=== PATIENT | female | born 1980 | race Caucasian/White ===

== ENCOUNTER 2017-07-14 15:28 | Emergency (ER) | payer OTHER ==
[2017-07-14] MEDS ORDERED: Lidocaine 1% 20 ML MDV ONE (15:41)
== END 2017-07-14 15:48 | disposition home or self-care (01) ==
LOC: SCSER 15:28
DX: S61.011A Laceration without foreign body of right thumb without damage to nail, initial encounter (principal); W26.9XXA Contact with unspecified sharp object(s), initial encounter
CPT/HCPCS: 99282; J2001

== ENCOUNTER 2017-10-08 08:58 | Outpatient (CLI) | payer OTHER | END 2017-10-08 08:59 | disposition home or self-care (01) | LOC: BICMAMMO 08:58 | PROVIDERS: ATTEND Obstetrics & Gynecology | DX: N63.23 Unspecified lump in the left breast, lower outer quadrant (principal) | CPT/HCPCS: 77066; G0279 ==

== ENCOUNTER 2019-03-22 07:41 | Day surgery (SDC) | payer OTHER ==
[2019-03-21 08:07] VITALS: BMI 33.6
[2019-03-22] MEDS ORDERED: Fentanyl 100 MCG/2 ML VIAL ONE ×2 (07:45→09:16)
[2019-03-22] MEDS ORDERED: Midazolam HCl 2 mg/2 ml Vial ONE (07:45)
[2019-03-22 08:50] LABS: #Basophils 0.1 thou/uL (0.0-0.2); #Eosinphils 0.3 thou/uL (0.0-0.7); #Lymphocytes 2.9 thou/uL (1.20-3.40); #Monocytes 0.9 thou/uL (0.11-0.59); #Neutrophils 7.7 thou/uL (1.40-6.50); %Eosinophils 2.8 % (0.0-10.0); %Lymphocytes 24.5 % (21.0-51.0); %Monocytes 7.2 % (0.0-10.0); %Neutrophils 64.5 % (42.0-75.0); Hemoglobin 14.1 g/dL (12.0-16.0); Mean Corpuscular HGB CONC 33.9 g/dL (32.0-36.0); Mean Corpuscular Hemoglobin 29.8 pg (27.0-31.0); Mean Corpuscular Volume 88.1 fL (78.0-98.0); Mean Platelet Volume 7.6 fL (7.4-10.4); Platelet Count 363 thou/uL (130-400); Red Blood Cell (RBC) Count 4.73 mill/uL (4.20-5.40)
[2019-03-22] MEDS ORDERED: Bupivacaine PF 0.5% 30 ML VIAL ONE (09:11)
[2019-03-22 09:32] LABS: Bilirubin Negative (Negative); Blood, Urine Negative (Negative); Glucose, Urine (Dipstick) Negative (Negative); Leukocyte Negative (Negative); Nitrite Negative (Negative); Protein, Urine (Dipstick) Negative (Neg-Trace); Urobilinogen 0.2 mg/dL (Less than 2)
[2019-03-22 09:40] LABS: Clarity Clear (Clear)
[2019-03-22 09:43] LABS: RBC/HPF 0-3 HPF (0-3)
[2019-03-22 09:44] LABS: Bacteria/HPF 2+ HPF (None Seen); Squamous Epithelial 0-3 HPF (0-3); WBC/HPF 0-3 HPF (0-3)
[2019-03-22] MEDS ORDERED: PROPOFOL 200 MG/20 ML VIAL ONE (11:10)
[2019-03-22] MEDS ORDERED: Dexamethasone 20 MG/5 ML VIAL ONE (11:10)
[2019-03-22] MEDS ORDERED: Lidocaine 1% PF 5 ML VIAL ONE (11:10)
[2019-03-22] MEDS ORDERED: Ketorolac Tromethamine 30 MG/ML VIAL ONE (11:10)
[2019-03-22] MEDS ORDERED: Ondansetron PF 4 MG/2 ML Vial ONE (11:10)
[2019-03-22] MEDS ORDERED: HYDROcodone/Acetaminophen 5/325 mg Tablet ONE (11:35)
[2019-03-22] MEDS ORDERED: Ondansetron ODT 4 MG TAB ONE (11:35)
--- NOTE | 2019-03-22 12:02 | RAD ---
LEFT FOOT THREE VIEWS: HISTORY: ORIF left foot. FINDINGS: Three spot fluoroscopy intraoperative images of the left foot demonstrate a screw internally fixating the fracture at the proximal aspect of the fifth metatarsal. POS: OFF
--- NOTE | 2019-03-22 17:19 | OP ---
DATE OF PROCEDURE: 03/22/2019 PREOPERATIVE DIAGNOSIS: Left fifth metatarsal/Payne fracture. POSTOPERATIVE DIAGNOSIS: Left fifth metatarsal/Payne fracture. PROCEDURE PERFORMED: Open reduction and internal fixation, fifth metatarsal base fracture. NUCLEAR POWERPLANT MECHANIC: None. ANESTHESIA: The patient received an LMA. ESTIMATED BLOOD LOSS: 10 mL. TOURNIQUET TIME: 34 minutes at 300 mmHg. ANTIBIOTICS: Ancef. IMPLANTS: Synthes 4.5 malleolar screw. COMPLICATIONS: None. HISTORY OF PRESENT ILLNESS: Ms. Carmona is a 38-year-old female, presenting with left foot pain. The patient sustained injury after falling in her kitchen on the 16 of last month. The patient continued to have pain. I discussed with her conservative and operative management. The patient desired to proceed with the operative management. I discussed the risks and benefits of surgery include pain, scar, bleeding, infection, fracture above or below the implants, need for further surgeries, failure of the procedure, damage to vital structures, loss of life or limb. The patient understood risks and benefits and elected to proceed. DESCRIPTION OF PROCEDURE: Time-out was performed designating the patient's left lower extremity as the operative site based on site, consents, and marking. After time-out, the patient's left lower extremity was prepped and draped in sterile fashion. Tourniquet was brought up and left for a total of 34 minutes. An incision was made about a centimeter half to 2 cm proximal to the tip of the fifth metatarsal base. We made skin down through skin, bluntly dissected down, and used a drill guide to place a guide pin and took 3 passes to get the pin in positioning 1 and 2. We then tapped it through the metaphysis into the canal of the shaft of the fifth metatarsal into place. We then over reamed with a 3.2 and placed a 4 or 5 just in the metaphysis to help with seating our screw. We felt a 45 mm with the appropriate length, placed down in position, compressed the fracture, which had good apposition just far enough that present lengths were passed. We took final pictures, AP, lateral and oblique views showing the screw in the shaft with good fixation. We washed and closed with 3-0 nylon. We placed the patient in a soft tissue dressing under 3D boot. The patient will be nonweightbearing. Follow up with me in 2 weeks for suture removal and preclinic films at that time. Job ID: [id number]
== END 2019-03-22 12:05 | disposition home or self-care (01) ==
LOC: SDC 07:41
PROVIDERS: ATTEND Orthopaedic Surgery
PROC: 0QSP04Z Reposition Left Metatarsal with Internal Fixation Device, Open Approach (ICD-10-PCS; principal; 2019-03-22)
DX: S92.352A Displaced fracture of fifth metatarsal bone, left foot, initial encounter for closed fracture (principal); W19.XXXA Unspecified fall, initial encounter; Y92.000 Kitchen of unspecified non-institutional (private) residence as the place of occurrence of the external cause
CPT/HCPCS: 76000; 81001; 85025; C1713; C1769; J0690; J1100; J1885; J2001; J2250; J2405; J2704; J3010; Q0162; S0020

== ENCOUNTER 2019-06-29 13:25 | Outpatient (CLI) | payer OTHER ==
--- NOTE | 2019-06-29 13:58 | ULT ---
Thyroid ultrasound: 06/29/2019 COMPARISON: None HISTORY: Hypercalcemia TECHNIQUE: Multiplanar grayscale sonographic imaging of the thyroid gland obtained. FINDINGS: The right lobe of the thyroid gland measures 3.5 x 1.4 x 0.8 cm and left lobe measures 3.0 x 0.9 x 0.9 cm. Thyroid isthmus measures 2 mm in AP dimension. No thyroid nodule noted. IMPRESSION: Unremarkable thyroid ultrasound.
--- NOTE | 2019-06-29 14:01 | BD ---
EXAM: Bone densitometry using DEXA HISTORY: 38 yo female. Screening for osteoporosis FINDINGS: L1--bone mineral density 1.003 g/sq cm; T score 0.1 ; Z score 0.3 L2--bone mineral density 1.185 g/sq cm; T score 1.4 ; Z score 1.6 L3--bone mineral density 1.120 g/sq cm; T score 0.3 ; Z score 0.5 L4--bone mineral density 1.051 g/sq cm; T score -0.1 ; Z score 0.1 Total L1-L4--bone mineral density 1.092 g/sq cm; T score 0.4 ; Z score 0.6 Left femoral neck--bone mineral density0.825; T score -0.2 ; Z score 0.1 Total proximal left femur--bone mineral density 0.988; T score 0.4 ; Z score 0.5 IMPRESSION: Normal BMD
== END 2019-06-29 13:26 | disposition home or self-care (01) ==
LOC: BICULT 13:25
PROVIDERS: ATTEND Family Medicine
DX: M85.9 Disorder of bone density and structure, unspecified (principal); E83.52 Hypercalcemia
CPT/HCPCS: 76536; 77080

== ENCOUNTER 2019-10-17 06:47 | Outpatient (CLI) | payer OTHER ==
[2019-10-17 09:58] LABS: #Basophils 0.1 thou/uL (0.0-0.2); #Eosinphils 0.3 thou/uL (0.0-0.7); #Lymphocytes 2.2 thou/uL (1.20-3.40); #Monocytes 0.7 thou/uL (0.11-0.59); #Neutrophils 3.9 thou/uL (1.40-6.50); %Basophils 0.7 % (0.0-1.0); %Eosinophils 4.4 % (0.0-10.0); %Lymphocytes 30.6 % (21.0-51.0); %Monocytes 9.7 % (0.0-10.0); %Neutrophils 54.6 % (42.0-75.0); Hemoglobin 14.7 g/dL (12.0-16.0); Mean Corpuscular HGB CONC 34.2 g/dL (32.0-36.0); Mean Corpuscular Volume 90.6 fL (78.0-98.0); Mean Platelet Volume 8.1 fL (7.4-10.4); Platelet Count 365 thou/uL (130-400); RBC Distribution Width 12.2 % (11.5-14.5); Red Blood Cell (RBC) Count 4.73 mill/uL (4.20-5.40); White Blood Cell (WBC) Count 7.1 thou/uL (4.8-10.8)
[2019-10-17 10:05] LABS: BHCG - Serum Negative (NEGATIVE); Pregs Control Background? CLEAR/WHITE (CLR/WHITE); Pregs Control Bar Appear? YES (CONTROL BAR)
[2019-10-17 13:41] LABS: Bacteria/HPF None Seen HPF (None Seen); Bilirubin Negative (Negative); Blood, Urine Negative (Negative); Clarity Clear (Clear); Glucose, Urine (Dipstick) Normal (Negative); Leukocyte Negative Leu/uL (Negative); Nitrite Negative (Negative); Protein, Urine (Dipstick) Negative (Neg-Trace); RBC/HPF 0-3 HPF (0-3); Squamous Epithelial 0-3 HPF (0-3); Urobilinogen Normal mg/dL (Less than 2); WBC/HPF 0-3 HPF (0-3)
[2019-10-17 18:44] LABS: SARS-CoV-2 MS2 Positive; SARS-CoV-2 N Gene Negative; SARS-CoV-2 S Gene Negative; SARS-CoV-2 orf1ab Negative
== END 2019-10-17 06:48 | disposition home or self-care (01) ==
LOC: LABBT 06:47
PROVIDERS: ATTEND Orthopaedic Surgery
DX: Z01.812 Encounter for preprocedural laboratory examination (principal); Z11.59 Encounter for screening for other viral diseases; S92.354K Nondisplaced fracture of fifth metatarsal bone, right foot, subsequent encounter for fracture with nonunion
CPT/HCPCS: 84703; 87635; U0003

== ENCOUNTER 2019-10-20 07:52 | Day surgery (SDC) | payer OTHER ==
[2019-10-17 09:06] VITALS: BMI 33.6
[2019-10-20] MEDS ORDERED: Fentanyl 100 MCG/2 ML VIAL ONE ×2 (08:25→08:59)
[2019-10-20] MEDS ORDERED: Midazolam HCl 2 mg/2 ml Vial ONE (08:25)
[2019-10-20] MEDS ORDERED: Propofol 500 MG/50 ML VIAL ONE (08:59)
[2019-10-20] MEDS ORDERED: Ondansetron PF 4 MG/2 ML Vial ONE ×2 (09:14→12:14)
[2019-10-20] MEDS ORDERED: Ketorolac Tromethamine 30 MG/ML VIAL ONE (09:14)
[2019-10-20] MEDS ORDERED: PROPOFOL 200 MG/20 ML VIAL ONE (09:14)
[2019-10-20] MEDS ORDERED: Dexamethasone 20 MG/5 ML VIAL ONE (09:14)
[2019-10-20] MEDS ORDERED: Bupivacaine PF 0.5% 30 ML VIAL ONE (09:14)
[2019-10-20] MEDS ORDERED: Lidocaine 1% PF 5 ML VIAL ONE (09:14)
--- NOTE | 2019-10-20 10:44 | RAD ---
Exam:Intraoperative fluoroscopy. HISTORY: Fifth metatarsal ORIF Exposure: 136.9 seconds. 3.15 mGy COMPARISON: None FINDINGS: 4 intraprocedural fluoroscopic views demonstrate placement of a single screw traversing the fifth metatarsal. Fifth metatarsal fracture is identified. IMPRESSION: Intraoperative fluoroscopy.
--- NOTE | 2019-10-20 17:28 | OP ---
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 PROCEDURES PERFORMED: Open reduction and internal fixation of right fifth Payne fracture. RESEARCH PROGRAMMER: Leland Gan. ANESTHESIOLOGIST: Dr. Ko. ANESTHESIA: The patient received a single-shot lateral sciatic. ESTIMATED BLOOD LOSS: Less than 20 mL. TOURNIQUET TIME: None. IMPLANTS: A 4.5 Synthes cannulated screw with a washer. ANTIBIOTICS: ancef COMPLICATIONS: None. HISTORY OF PRESENT ILLNESS: Ms. Carmona is a 39-year-old female, who broke her left metatarsal first, then broke her right 5th metatarsal, and has continued to work , continued to have pain. She had failed conservative measures. 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 She had healed her left. Discussed with her the risks and benefits of cannulated screw fixation. I discussed risks and benefits including pain, scar, bleeding, infection, damage to vital structures, decreased range of motion and strength, continued pain despite surgical intervention, loss of life or limb, continued nonunion, failure of her implants, continued pain, need for revision surgery. The patient and family understood the risks and benefits and elected to proceed. DESCRIPTION OF PROCEDURE: Time-out was performed designating the patient's right lower extremity as the operative site based on site, consents, and marking. After time-out, the patient's right lower extremity was prepped and draped in sterile fashion. After time-out, the patient then received a perioperative antibiotics. A lateral incision was made just at the skin edge of the plantar and dorsal skin line, down through skin, dissecting bluntly down to the tip of the 5th metatarsal, placed a guidepin under fluoroscopic guidance, slightly posterior, this made me have to place 2 more passes, which I finally got in on the 4th pass exactly where I wanted to within the shaft as well as the tip. I overdrilled and measured to about as far as 60, but I felt that it would not make the curve in the metatarsal, and backed the wire back to about 50, so I elected 46 to allow for compression, overdrilled with my drill and I placed the screw. While passing the screw, I noted that at the end the firm endpoint of the screw was actually coming into the 5th metatarsal head at its base and kind of collapsing, I was not getting a good compression. Therefore, I placed a washer to allow for greater surface area. I compressed and got good medial compression. The lateral compression was not as good. We felt I had overall firm fixation and completed my procedure. I washed and closed with 3-0 nylon. The patient will be nonweightbearing for likely 4 to 6 weeks; I may keep her nonweightbearing a little bit longer because of the patient's difficulties to get a good compression. The patient will be sent home. I will see her back in clinic in about 10 to 12 days to take her splint off. She will be sent home with tramadol. Job ID: [id number] MTDD
== END 2019-10-20 13:25 | disposition home or self-care (01) ==
LOC: SDC 07:52
PROVIDERS: ATTEND Orthopaedic Surgery
PROC: 3E0T3BZ Introduction of Anesthetic Agent into Peripheral Nerves and Plexi, Percutaneous Approach (ICD-10-PCS; principal; 2019-10-20)
PROC: 0QSN04Z Reposition Right Metatarsal with Internal Fixation Device, Open Approach (ICD-10-PCS; principal; 2019-10-20)
DX: S92.354K Nondisplaced fracture of fifth metatarsal bone, right foot, subsequent encounter for fracture with nonunion (principal); G89.18 Other acute postprocedural pain; Z79.899 Other long term (current) drug therapy; Z88.5 Allergy status to narcotic agent; Z88.6 Allergy status to analgesic agent; X58.XXXD Exposure to other specified factors, subsequent encounter
CPT/HCPCS: 76000; C1713; C1769; J0690; J1100; J1885; J2001; J2250; J2405; J2704; J3010; S0020

== ENCOUNTER 2020-03-02 08:37 | Outpatient (CLI) | payer OTHER | END 2020-03-02 08:38 | disposition home or self-care (01) | LOC: DTY/OP 08:37 | PROVIDERS: ATTEND Specialist | DX: Z01.818 Encounter for other preprocedural examination (principal); E66.01 Morbid (severe) obesity due to excess calories | CPT/HCPCS: 97802 ==

== ENCOUNTER 2025-02-22 12:00 | Outpatient (CLI) | payer BC | END 2025-02-22 17:00 | disposition home or self-care (01) | LOC: SCSMRI 12:00 | PROVIDERS: ATTEND Family Medicine | DX: R41.82 Altered mental status, unspecified (principal); R90.82 White matter disease, unspecified | CPT/HCPCS: 70553; 76376 ==